=== PATIENT | male | born 1990 | race African-American/Black ===

== ENCOUNTER 2019-11-07 06:31 | Inpatient (IN) | payer MEDICAID, OTHER ==
[2019-11-07] VITALS (7 sets, daily range): BP systolic 103–121; BP diastolic 61–81
[~2019-11-07] VITALS: Ht 182.9 cm; Wt 85.9 kg
[2019-11-07] MEDS ORDERED: SODIUM CHLORIDE 0.9% 1,000 ML IV ONE ×2 (07:01)
[2019-11-07 07:02] LABS: Hematocrit 52.6 % (41.0-53.0); Hemoglobin 16.3 g/dL (13.5-17.5); Mean Corpuscular Hemoglobin 31.7 pg (28.0-32.0); Mean Corpuscular Hgb Conc. 30.9 g/dL (32.0-36.0); Mean Corpuscular Volume 102.7 fL (80.0-100.0); Platelet Count (auto) 266 10^3/uL (140-450); Red Blood Cells 5.12 10^6/uL (4.5-5.90); Red Cell Distribution Width 13.9 % (11.8-14.3); White Blood Cell 24.4 10^3/uL (4.4-10.8)
[2019-11-07 07:04] LABS: Urine Bacteria NONE SEEN /hpf (None Seen); Urine Blood 3+ /uL (Negative); Urine Hyaline Cast MOD /lpf (0 - 2); Urine Mucus FEW (None Seen); Urine Specific Gravity 1.019 (1.001-1.035); Urine Sperm PRESENT /hpf (None Seen); Urine WBC 10 /hpf (0 - 3)
[2019-11-07 07:09] LABS: Band Neutrophils % (manual) 0; Basophils % (manual) 0 (0.0-2.0); Blast Cells 0; Eosinophils % (manual) 0 (0-7); Metamyelocytes % 0; Myelocytes % 0; Promyelocytes % 0; Reactive Lymphocytes 0
[2019-11-07] MEDS ORDERED: IOHEXOL 350 MG/ML 100ML IJ ONE (07:10)
[2019-11-07 07:21] LABS: Amphetamine Screen, Urine POSITIVE (NEGATIVE); Barbiturate Scree,Urine NEGATIVE (NEGATIVE); Benzodiazephine Screen, Urine NEGATIVE (NEGATIVE); Cannabinoid Screen, Urine POSITIVE (NEGATIVE); Cocaine Screen, Urine NEGATIVE (NEGATIVE); Opiate Scree,Urine NEGATIVE (NEGATIVE); Phencyclidine Screen, Urine NEGATIVE (NEGATIVE)
[2019-11-07 07:29] LABS: Lymphocytes % (manual) 8 (10.0-50.0); Monocytes % (manual) 4 (0-12)
[2019-11-07] MEDS: MIDAZOLAM DRIP 50 mg/50mL 50 ML IV SCH (07:48)
[2019-11-07] MEDS ORDERED: SODIUM CHLORIDE 0.9% 3,000 ML IV ONE (08:00)
[2019-11-07] MEDS ORDERED: LORazepam 2MG/ML-1ML VIAL IV ONE (08:00)
[2019-11-07] MEDS ORDERED: NOREPINEPHRINE 8 MG/250ML KIT 250 ML IV SCH (08:00)
[2019-11-07] MEDS ORDERED: LORazepam 2MG/ML-1ML VIAL ONE (08:08)
[2019-11-07 09:09] LABS: Acetaminophen < 2.0 ug/mL (10-30); Salicylate 2.4 mg/dL (2.8-20.0)
[2019-11-07 09:10] LABS: Anion Gap 16 (5-15); Blood Urea Nitrogen 24 mg/dL (7-18); Carbon Dioxide 15 mmol/L (21-32); Chloride 109 mmol/L (98-107); Glucose 118 mg/dL (74-106); Sodium 140 mmol/L (136-145)
[2019-11-07 09:11] LABS: Alanine Aminotransferase 971 U/L (16-61); Albumin 2.8 g/dL (3.4-5.0); Alkaline Phosphatase 76 U/L (45-117); Aspartate Aminotransferase 784 U/L (15-37); BUN/Creatinine Ratio 9.3; Bilirubin, Total < 0.1 mg/dL (0.2-1.0); Blood Alcohol < 3.0 mg/dL (0-5); Calcium 7.5 mg/dL (8.5-10.1); GFR African American 37 mL/min; GFR Non-African American 31 mL/min; Magnesium 2.9 mg/dL (1.6-2.6); Total Protein 6.3 g/dL (6.4-8.2)
[2019-11-07 09:15] LABS: Potassium 5.9 mmol/L (3.5-5.1)
[2019-11-07] MEDS ORDERED: MORPHINE SULF INJ 2 MG/ML SYRINGE 1ML IV PRN (12:00)
[2019-11-07] MEDS ORDERED: NITROGLYCERIN 0.4 MG SL TAB SL PRN (12:00)
[2019-11-07] MEDS ORDERED: InsuLIN REG 1unit/0.01ml Soln (100units/ml) IV ONE (12:30)
[2019-11-07] MEDS ORDERED: SODIUM ZIRCONIUM CYCL 10 GM PAK PO ONE (12:30)
[2019-11-07] MEDS ORDERED: ALBUTEROL SULF 2.5 MG/0.5ML(0.5%) NEB SOLN NEB ONE (12:30)
[2019-11-07] MEDS ORDERED: DEXTROSE (50%) 50ML SYRG IV ONE (12:30)
[2019-11-07] MEDS ORDERED: CALCIUM GLUC 4.65meq/50ml D5AE 50 ML IV ONE (12:30)
[2019-11-07] MEDS ORDERED: SODIUM BICARBONATE 8.4% INJ 50ML SYRINGE IV ONE (12:30)
[2019-11-07] MEDS ORDERED: PANTOPRAZOLE 40 MG/10 ML VIAL INJ IV ONE (12:45)
[2019-11-07] MEDS ORDERED: ENOXAPARIN SOD 40 MG/0.4 ML SYRINGE SC ONE (12:45)
[2019-11-07] MEDS ORDERED: cefTRIAXone 1GM/50ML D5W 50 ML IV ONE (12:45)
[2019-11-07] MEDS: SODIUM CHLORIDE 0.9% 1,000 ML IV SCH ×2 (13:27→18:41)
[2019-11-07] MEDS ORDERED: THIAMINE 100mg/ml INJ (200mg/2ml VIAL) IV STA (20:42)
[2019-11-08] VITALS (10 sets, daily range): BP systolic 104–126; BP diastolic 48–78
[2019-11-08] MEDS: SODIUM CHLORIDE 0.9% 1,000 ML IV SCH ×4 (01:26→21:49)
[2019-11-08] MEDS: fentaNYL Drip 2500mCg/250mlNS 250 ML IV SCH (08:16)
[2019-11-08 08:50] LABS: Urine Amorphous Crystal FEW /hpf (None Seen); Urine Bacteria NONE SEEN /hpf (None Seen); Urine Blood 2+ /uL (Negative); Urine Hyaline Cast FEW /lpf (0 - 2); Urine Specific Gravity 1.024 (1.001-1.035); Urine WBC 7 /hpf (0 - 3)
[2019-11-08] MEDS: cefTRIAXone 1GM/50ML D5W 50 ML IV SCH (09:00)
[2019-11-08] MEDS: ENOXAPARIN SOD 40 MG/0.4 ML SYRINGE SC SCH (09:05)
[2019-11-08] MEDS: PANTOPRAZOLE 40 MG/10 ML VIAL INJ IV SCH (09:05)
[2019-11-08 10:00] LABS: Albumin 2.7 g/dL (3.4-5.0); Potassium 4.2 mmol/L (3.5-5.1)
[2019-11-08 10:06] LABS: BUN/Creatinine Ratio 13.9; Bilirubin, Total 0.3 mg/dL (0.2-1.0); Total Protein 6.1 g/dL (6.4-8.2)
[2019-11-08] MEDS: MIDAZOLAM DRIP 50 mg/50mL 50 ML IV SCH ×4 (10:35→22:02)
[2019-11-08 10:51] LABS: Basophils # (auto) 0.1 10 ^3/uL (0-0.2); Basophils % (auto) 0.4 % (0.0-2.0); Eosinophils # (auto) 0 10 ^3/uL (0-0.8); Eosinophils % (auto) 0.2 % (0.0-7.0); Hemoglobin 14.7 g/dL (13.5-17.5); Lymphocytes # (auto) 1.4 10 ^3/uL (0.4-5.4); Lymphocytes % (auto) 9.3 % (10.0-50.0); Mean Corpuscular Hemoglobin 31.1 pg (28.0-32.0); Mean Corpuscular Hgb Conc. 32.6 g/dL (32.0-36.0); Monocytes % (auto) 6.7 % (0.0-12.0); Neutrophils # (auto) 12.5 10 ^3/uL (1.6-8.6); Neutrophils % (auto) 83.4 % (37.0-80.0); Nucleated Red Blood Cells % 0.2 %; Platelet Count (auto) 197 10^3/uL (140-450); Red Blood Cells 4.72 10^6/uL (4.5-5.90); Red Cell Distribution Width 13.6 % (11.8-14.3)
[2019-11-08 10:54] LABS: Mean Corpuscular Volume 95.3 fL (80.0-100.0)
[2019-11-08] MEDS ORDERED: ACETAMINOPHEN 650 mg PER 20 mL UD GT PRN (17:00)
[2019-11-08] MEDS ORDERED: IBUPROFEN 800 MG TAB PO PRN (18:00)
[2019-11-08] MEDS ORDERED: IBUPROFEN 100MG/5ML ORAL SUSP 100 MG/5 ML UD GT PRN (18:30)
[2019-11-08] MEDS: THIAMINE 100mg/ml INJ (200mg/2ml VIAL) IV SCH (22:02)
[2019-11-09] VITALS (11 sets, daily range): BP systolic 100–133; BP diastolic 46–77
[2019-11-09] MEDS: fentaNYL Drip 2500mCg/250mlNS 250 ML IV SCH (02:10)
[2019-11-09] MEDS: MIDAZOLAM DRIP 50 mg/50mL 50 ML IV SCH (02:12)
[2019-11-09] MEDS: SODIUM CHLORIDE 0.9% 1,000 ML IV SCH ×4 (04:14→23:54)
[2019-11-09] MEDS: cefTRIAXone 1GM/50ML D5W 50 ML IV SCH (09:12)
[2019-11-09 09:35] LABS: Basophils # (auto) 0 10 ^3/uL (0-0.2); Basophils % (auto) 0.7 % (0.0-2.0); Eosinophils # (auto) 0.1 10 ^3/uL (0-0.8); Eosinophils % (auto) 1.5 % (0.0-7.0); Hemoglobin 14.2 g/dL (13.5-17.5); Lymphocytes # (auto) 1.2 10 ^3/uL (0.4-5.4); Lymphocytes % (auto) 16.9 % (10.0-50.0); Mean Corpuscular Hemoglobin 31.7 pg (28.0-32.0); Mean Corpuscular Hgb Conc. 32.9 g/dL (32.0-36.0); Mean Corpuscular Volume 96.4 fL (80.0-100.0); Monocytes # (auto) 0.6 10 ^3/uL (0-1.3); Monocytes % (auto) 8.2 % (0.0-12.0); Neutrophils # (auto) 5.4 10 ^3/uL (1.6-8.6); Neutrophils % (auto) 72.7 % (37.0-80.0); Nucleated Red Blood Cells % 0.1 %; Platelet Count (auto) 158 10^3/uL (140-450); Red Blood Cells 4.46 10^6/uL (4.5-5.90); Red Cell Distribution Width 13.2 % (11.8-14.3); White Blood Cell 7.4 10^3/uL (4.4-10.8)
[2019-11-09 09:55] LABS: Albumin 2.3 g/dL (3.4-5.0); Potassium 3.6 mmol/L (3.5-5.1)
[2019-11-09 10:01] LABS: BUN/Creatinine Ratio 15.2; Bilirubin, Total 0.6 mg/dL (0.2-1.0); Total Protein 5.6 g/dL (6.4-8.2)
[2019-11-09] MEDS: PANTOPRAZOLE 40 MG/10 ML VIAL INJ IV SCH (10:27)
[2019-11-09] MEDS: ENOXAPARIN SOD 40 MG/0.4 ML SYRINGE SC SCH (10:28)
--- NOTE | 2019-11-09 11:05 | NUR ---
WOUND CARE NOTE: Wound care in to see patient due to intubation status and low Ammon score of 12, putting patient to high risk for skin breakdown. Patient is 29 years old male with admitting diagnosis of Hypoxia, Overdose. Patient is resting in hospital bed in ED Rm. #7. Patient is intubated, sedated and mechanically ventilated. Patient appears to be in no pain using Harry Albrecht Faces Pain Scale. His Ammon score is 12. Skin assessment done with the assistance of patient's nurse, ORTIZ Escalera. No wound, no pressure injury noted. Repositioned patient for comfort facing his Rt side, redistributed pressure points with pillows. RECOMMENDATION: Nursing to continue with BID/PRN cleaning and application of Barrier cream to sacral, buttocks as preventative, frequent turning and repositioning schedule as condition permits, redistribute pressure points with pillows, elevate heels on pillows, continue monitoring by wound care while patient is intubated and has Ammon score of <18.
[2019-11-09] MEDS ORDERED: DEXTROSE (50%) 50ML SYRG IV ONE (16:45)
[2019-11-09] MEDS: DEXTROSE 10% 1,000 ML IV SCH (17:46)
[2019-11-09] MEDS: ACCU-CHEK COMFORT CURVE STRIP VI SCH ×4 (17:52→23:00)
[2019-11-09] MEDS ORDERED: DEXTROSE (50%) 50ML SYRG IV PRN (18:00)
[2019-11-09] MEDS: THIAMINE 100mg/ml INJ (200mg/2ml VIAL) IV SCH (21:26)
[2019-11-10] VITALS (12 sets, daily range): BP systolic 114–133; BP diastolic 61–85
[2019-11-10] MEDS: ACCU-CHEK COMFORT CURVE STRIP VI SCH ×12 (01:19→23:04)
[2019-11-10] MEDS: SODIUM CHLORIDE 0.9% 1,000 ML IV SCH ×4 (06:54→20:53)
[2019-11-10] MEDS: fentaNYL Drip 2500mCg/250mlNS 250 ML IV SCH ×2 (06:56→23:46)
[2019-11-10] MEDS: MIDAZOLAM DRIP 50 mg/50mL 50 ML IV SCH ×4 (07:48→22:48)
[2019-11-10] MEDS: ENOXAPARIN SOD 40 MG/0.4 ML SYRINGE SC SCH (09:34)
[2019-11-10] MEDS: PANTOPRAZOLE 40 MG/10 ML VIAL INJ IV SCH (09:34)
[2019-11-10] MEDS: cefTRIAXone 1GM/50ML D5W 50 ML IV SCH (09:34)
[2019-11-10] MEDS: DEXTROSE 10% 1,000 ML IV SCH (10:22)
[2019-11-10] MEDS: THIAMINE 100mg/ml INJ (200mg/2ml VIAL) IV SCH (21:34)
[2019-11-11] MEDS: ACCU-CHEK COMFORT CURVE STRIP VI SCH ×12 (01:11→23:18)
[2019-11-11 02:00] VITALS: BP 135/87
[2019-11-11 03:54] VITALS: BP 134/80
[2019-11-11] MEDS: DEXTROSE 10% 1,000 ML IV SCH ×2 (04:13→22:10)
[2019-11-11] MEDS: MIDAZOLAM DRIP 50 mg/50mL 50 ML IV SCH ×2 (04:14→12:00)
[2019-11-11 04:40] VITALS: BP 135/82
[2019-11-11 06:18] VITALS: BP 127/84
[2019-11-11 08:02] VITALS: BP 133/82
[2019-11-11] MEDS: cefTRIAXone 1GM/50ML D5W 50 ML IV SCH (09:00)
[2019-11-11] MEDS: ENOXAPARIN SOD 40 MG/0.4 ML SYRINGE SC SCH (10:00)
[2019-11-11] MEDS: PANTOPRAZOLE 40 MG/10 ML VIAL INJ IV SCH (10:00)
--- NOTE | 2019-11-11 10:05 | NUR ---
PT PLACED ON CPAP WEANING TRIAL PER DR BENAVIDES. PT IS ABLE TO UNDERSTAND AND FOLLOW INDICATIONS. BS ARE CLEAR TO AUSCULTATION, RR18 BPM, HR 62BPM, BP 132/88. 98% O2 SATS. WILL CONTINUE TO MONITOR PT.
--- NOTE | 2019-11-11 12:37 | NUR ---
CPAP WEANING PARAMETERS: NIF 39, VC 1600, VTs 512. RR14. PT EXTUBATED AND PLACED ON 30% COOL MYST VIA AEROSOL MASK. PT TOLERATING WELL. NO SOB, STRIDOR OR ANY OTHER RESPIRATORY DISTRESS NOTICED. RR16 BPM, HR 71 BPM, 100% O2 SATS. DR BENAVIDES AT BEDSIDE.
[2019-11-11] MEDS: SODIUM CHLORIDE 0.9% 1,000 ML IV SCH ×3 (14:00→22:53)
[2019-11-11] MEDS ORDERED: LORazepam 2MG/ML-1ML VIAL IV PRN (18:15)
[2019-11-11] MEDS: THIAMINE 100mg/ml INJ (200mg/2ml VIAL) IV SCH (23:38)
[2019-11-12] MEDS: ACCU-CHEK COMFORT CURVE STRIP VI SCH ×10 (01:14→22:36)
[2019-11-12] MEDS: SODIUM CHLORIDE 0.9% 1,000 ML IV SCH ×3 (06:15→19:24)
[2019-11-12] MEDS: fentaNYL Drip 2500mCg/250mlNS 250 ML IV SCH ×2 (07:35→15:08)
[2019-11-12] MEDS: cefTRIAXone 1GM/50ML D5W 50 ML IV SCH (09:09)
[2019-11-12] MEDS: ENOXAPARIN SOD 40 MG/0.4 ML SYRINGE SC SCH (10:00)
[2019-11-12] MEDS: PANTOPRAZOLE 40 MG/10 ML VIAL INJ IV SCH (10:00)
--- NOTE | 2019-11-12 14:40 | NUR ---
Nutrition Assessment Notes please see attached link for complete assessment [employer] needs BW 72 [id number] kcals (25-30 kcal/kgBW), Est Protein needs: 72-86 gms/day (1.0-1.2 gm/kgBW). Will continue to monitor and reassess prn. Addendum: 11/12/19 at [address] Amended: Links added.
[2019-11-12] MEDS: DEXTROSE 10% 1,000 ML IV SCH (15:17)
--- NOTE | 2019-11-12 17:15 | NUR ---
Telemetry admit from MAURICIO GALLAGHER JR admitted to Telemetry unit after SBAR received. Patient oriented to EDGAR AGUIRRERN primary RN, unit,279 room,a bed, and unit policies regarding patient care and visiting hours. Patient now on continuous telemetry monitoring, tele box #76 and telemetry reading on arrival to unit is sr 60. Patient weighed by bedscale and encouraged to call if they need something. All questions and concerns addressed, patient verbalized understanding. Note:
[2019-11-12 17:59] VITALS: BP 132/83
[2019-11-12 21:27] LABS: Hemoglobin 12.9 g/dL (13.5-17.5); Monocytes % (auto) 10.5 % (0.0-12.0); Nucleated Red Blood Cells % 0.1 %
[2019-11-12 21:31] LABS: Basophils # (auto) 0 10 ^3/uL (0-0.2); Basophils % (auto) 0.4 % (0.0-2.0); Eosinophils # (auto) 0.1 10 ^3/uL (0-0.8); Eosinophils % (auto) 2.7 % (0.0-7.0); Hematocrit 38.4 % (41.0-53.0); Lymphocytes # (auto) 1.2 10 ^3/uL (0.4-5.4); Lymphocytes % (auto) 22.4 % (10.0-50.0); Mean Corpuscular Hemoglobin 31.6 pg (28.0-32.0); Mean Corpuscular Hgb Conc. 33.5 g/dL (32.0-36.0); Mean Corpuscular Volume 94.4 fL (80.0-100.0); Monocytes # (auto) 0.6 10 ^3/uL (0-1.3); Neutrophils # (auto) 3.5 10 ^3/uL (1.6-8.6); Platelet Count (auto) 174 10^3/uL (140-450); Red Blood Cells 4.07 10^6/uL (4.5-5.90); Red Cell Distribution Width 12.6 % (11.8-14.3); White Blood Cell 5.5 10^3/uL (4.4-10.8)
[2019-11-12 21:38] LABS: Albumin 2.4 g/dL (3.4-5.0); BUN/Creatinine Ratio 4.1; Calcium 8.2 mg/dL (8.5-10.1); Magnesium 1.6 mg/dL (1.6-2.6); Potassium 3.3 mmol/L (3.5-5.1)
[2019-11-12 21:41] LABS: Bilirubin, Total 0.6 mg/dL (0.2-1.0); Total Protein 6.3 g/dL (6.4-8.2)
[2019-11-13] VITALS (7 sets, daily range): BP systolic 136–168; BP diastolic 76–93
[2019-11-13] MEDS: SODIUM CHLORIDE 0.9% 1,000 ML IV SCH ×3 (01:43→13:43)
[2019-11-13] MEDS ORDERED: DEXTROSE 10% 500 ML IV ONE (04:53)
[2019-11-13] MEDS: DEXTROSE 10% 1,000 ML IV SCH (05:06)
[2019-11-13] MEDS: ACCU-CHEK COMFORT CURVE STRIP VI SCH ×3 (05:21→17:00)
--- NOTE | 2019-11-13 07:25 | NUR ---
Opening Shift Note Assumed care of patient, awake and alert. No S/S of distress/SOB or pain. Updated on POC and instructed to call for assistance PRN, patient verbalized understanding. Bed locked in lowest position, side rails up x2, call light within reach. Sitter at bedside for safety. Will continue to monitor for changes Q1hr and PRN.
[2019-11-13] MEDS: cefTRIAXone 1GM/50ML D5W 50 ML IV SCH (09:55)
[2019-11-13] MEDS: PANTOPRAZOLE 40 MG/10 ML VIAL INJ IV SCH (09:56)
[2019-11-13] MEDS: ENOXAPARIN SOD 40 MG/0.4 ML SYRINGE SC SCH (09:56)
[2019-11-13] MEDS ORDERED: THIAMINE 100mg/ml INJ (200mg/2ml VIAL) IV SCH (10:00)
[2019-11-13] MEDS ORDERED: hydrALAZINE HCL 20 MG/ML VL IV PRN (13:30)
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
--- NOTE | 2019-11-13 17:11 | NUR ---
BLOOD GLUCOSE 101
--- NOTE | 2019-11-13 19:30 | NUR ---
Opening Shift Note Assumed care of patient, awake and alert. No S/S of distress/SOB or pain. Instructed on POC and to call for assist PRN, will continue to monitor for changes Q1hr and PRN.
--- NOTE | 2019-11-13 21:10 | NUR ---
Discharge instructions given as ordered by dayshift RN. Encourage to follow up with PMD as instructed. All questions and concerns addressed. Patient verbalized understanding. Medication reconciliation form completed and copy given to patient. No home medications held in Pharmacy, and no vaccines needed at this time. IV removed with catheter intact, pressure dressing applied, patient voiding freely. Telemetry unit returned to ICU. Patient taken to vehicle via wheelchair with all personal belongings, accompanied by staff and met by family member. No distress noted at time of departure.
== END 2019-11-13 20:10 | disposition home or self-care (01) | DRG 812 ==
LOC: EDBD 06:31 → ER 06:31 → TELE 06:32 → TELE-WESTW 11-12 17:19
PROVIDERS: ADMIT Internal Medicine; ATTEND Internal Medicine
PROC: 5A12012 Performance of Cardiac Output, Single, Manual (ICD-10-PCS; principal; 2019-11-07)
PROC: 05H533Z Insertion of Infusion Device into Right Subclavian Vein, Percutaneous Approach (ICD-10-PCS; 2019-11-07)
PROC: 5A1955Z Respiratory Ventilation, Greater than 96 Consecutive Hours (ICD-10-PCS; 2019-11-07)
PROC: 0BH17EZ Insertion of Endotracheal Airway into Trachea, Via Natural or Artificial Opening (ICD-10-PCS; 2019-11-07)
DX: T50.901A Poisoning by unspecified drugs, medicaments and biological substances, accidental (unintentional), initial encounter (principal); A41.9 Sepsis, unspecified organism; E87.5 Hyperkalemia; N30.00 Acute cystitis without hematuria; J96.01 Acute respiratory failure with hypoxia; K72.00 Acute and subacute hepatic failure without coma; G93.1 Anoxic brain damage, not elsewhere classified; E87.2 Acidosis; R79.89 Other specified abnormal findings of blood chemistry; D75.89 Other specified diseases of blood and blood-forming organs; J69.0 Pneumonitis due to inhalation of food and vomit; F12.90 Cannabis use, unspecified, uncomplicated; N17.9 Acute kidney failure, unspecified; F19.10 Other psychoactive substance abuse, uncomplicated; Z20.828 Contact with and (suspected) exposure to other viral communicable diseases; E87.4 Mixed disorder of acid-base balance; E87.6 Hypokalemia; F17.200 Nicotine dependence, unspecified, uncomplicated; F32.9 Major depressive disorder, single episode, unspecified; G92 Toxic encephalopathy; M62.82 Rhabdomyolysis; Y92.89 Other specified places as the place of occurrence of the external cause; Z79.899 Other long term (current) drug therapy
CPT/HCPCS: 31500; 36415; 36556; 36600; 70450; 70551; 71045; 71260; 74177; 80053; 80307; 80320; 80329; 81001; 82550; 82805; 82962; 83735; 84132; 84484; 85007; 85025; 85027; 87070; 87081; 87086; 87205; 92950; 93005; 93306; 94003; 94640; 95819; 96361; 96365; 96375; 99291; C9113; G0378; J0610; J0696; J1815; J2250

== ENCOUNTER 2020-01-09 17:45 | Emergency (ER) | payer MEDICAID ==
[~2020-01-09] VITALS: Ht 182.9 cm; Wt 72.6 kg
[2020-01-09] MEDS ORDERED: IPRATROPIUM BROM 0.5 MG/2.5ML INH SOL NEB ONE (19:15)
[2020-01-09] MEDS ORDERED: ALBUTEROL SULF 2.5 MG/0.5ML(0.5%) NEB SOLN NEB ONE (19:15)
[2020-01-09] MEDS ORDERED: methylPREDNISolone SOD SUCC 125 MG/2 ML VL IV ONE (19:15)
[2020-01-09] MEDS ORDERED: SODIUM CHLORIDE 0.9% 1,000 ML IV ONE ×2 (19:15→22:15)
[2020-01-09 19:16] LABS: Basophils # (auto) 0 10 ^3/uL (0-0.2); Basophils % (auto) 0.6 % (0.0-2.0); Eosinophils # (auto) 0.1 10 ^3/uL (0-0.8); Eosinophils % (auto) 2.1 % (0.0-7.0); Hematocrit 49.1 % (41.0-53.0); Lymphocytes # (auto) 1.8 10 ^3/uL (0.4-5.4); Lymphocytes % (auto) 30.4 % (10.0-50.0); Mean Corpuscular Hemoglobin 30.7 pg (28.0-32.0); Mean Corpuscular Hgb Conc. 32.6 g/dL (32.0-36.0); Mean Corpuscular Volume 94.1 fL (80.0-100.0); Monocytes # (auto) 0.7 10 ^3/uL (0-1.3); Monocytes % (auto) 10.9 % (0.0-12.0); Neutrophils # (auto) 3.4 10 ^3/uL (1.6-8.6); Platelet Count (auto) 278 10^3/uL (140-450); Red Blood Cells 5.22 10^6/uL (4.5-5.90); Red Cell Distribution Width 13.1 % (11.8-14.3)
[2020-01-09 19:28] LABS: Alanine Aminotransferase 27 U/L (16-61); Albumin 4.1 g/dL (3.4-5.0); Anion Gap 4 (5-15); Aspartate Aminotransferase 19 U/L (15-37); BUN/Creatinine Ratio 17.7; Blood Urea Nitrogen 14 mg/dL (7-18); Calcium 9.1 mg/dL (8.5-10.1); Carbon Dioxide 30 mmol/L (21-32); Chloride 103 mmol/L (98-107); GFR African American 149 mL/min; GFR Non-African American 123 mL/min; Sodium 137 mmol/L (136-145)
[2020-01-09 19:32] LABS: Glucose 78 mg/dL (74-106)
[2020-01-09 19:36] LABS: Alkaline Phosphatase 79 U/L (45-117); Bilirubin, Total 0.5 mg/dL (0.2-1.0); Total Protein 8.2 g/dL (6.4-8.2)
[2020-01-09 19:44] LABS: INR 1.03 (0.9-1.15); Partial Thromboplastin Time 31.3 sec (23.0-31.2)
[2020-01-09 22:00] VITALS: BP 154/97
[2020-01-09 22:49] LABS: Urine Bacteria NONE SEEN /hpf (None Seen); Urine Blood Negative /uL (Negative); Urine Mucus FEW (None Seen); Urine Specific Gravity 1.019 (1.001-1.035); Urine WBC 5 /hpf (0 - 3)
[2020-01-09 23:06] LABS: Alcohol, Urine < 3.0 mg/dL (0-10); Amphetamine Screen, Urine POSITIVE (NEGATIVE); Barbiturate Scree,Urine NEGATIVE (NEGATIVE); Benzodiazephine Screen, Urine NEGATIVE (NEGATIVE); Cannabinoid Screen, Urine POSITIVE (NEGATIVE); Cocaine Screen, Urine NEGATIVE (NEGATIVE); Opiate Scree,Urine POSITIVE (NEGATIVE); Phencyclidine Screen, Urine NEGATIVE (NEGATIVE)
== END 2020-01-09 23:35 | disposition home or self-care (01) ==
LOC: ER 17:45
DX: J01.00 Acute maxillary sinusitis, unspecified (principal); J20.9 Acute bronchitis, unspecified; E86.0 Dehydration; F19.10 Other psychoactive substance abuse, uncomplicated; Z20.828 Contact with and (suspected) exposure to other viral communicable diseases
CPT/HCPCS: 36415; 71045; 80053; 80307; 81001; 83735; 83880; 84484; 85025; 85379; 85610; 85730; 87426; 94640; 96361; 96374; 99285; J2930; J7644

== ENCOUNTER 2020-11-17 15:12 | Emergency (ER) | payer MEDICAID ==
[~2020-11-17] VITALS: Ht 182.9 cm; Wt 81.6 kg
[2020-11-17 15:16] VITALS: BP 157/85
== END 2020-11-17 20:41 | disposition home or self-care (01) ==
LOC: ER 15:12
DX: K08.89 Other specified disorders of teeth and supporting structures (principal); J45.909 Unspecified asthma, uncomplicated